=== PATIENT | female | born 1990 | race Hispanic/Latino ===

== ENCOUNTER 2023-02-22 01:31 | Emergency (ER) | payer BC, OTHER ==
[~2023-02-22] VITALS: Ht 172.7 cm; Wt 97.1 kg
[2023-02-22 02:19] LABS: BASOPHILS # (AUTO) 0.07 K/uL (0.00-0.20); BASOPHILS % (AUTO) 0.9 % (0.0-5.0); EOSINOPHILS % (AUTO) 6.4 % (0.0-8.0); HEMATOCRIT 37.6 % (36-48); IMMATURE GRANULOCYTE ABSOLUTE 0.03 K/uL (0-1); LYMPHOCYTES # (AUTO) 0.8 K/uL (1.0-4.8); LYMPHOCYTES % (AUTO) 9.8 % (21.0-51.0); MEAN CORPUSCULAR HEMOGLOBIN 26.1 pg (27.0-33.0); MEAN CORPUSCULAR HGB CONC 30.6 g/dL (32.0-36.0); MEAN CORPUSCULAR VOLUME 85.3 fL (79-99); MONOCYTES # (AUTO) 0.4 K/uL (0.1-1.0); MONOCYTES % (AUTO) 5.3 % (3.0-13.0); NEUTROPHILS # (AUTO) 6.1 K/uL (1.8-7.7); NEUTROPHILS % (AUTO) 77.2 % (40.0-77.0); PLATELET COUNT (AUTO) 331 K/uL (130-400); RED BLOOD CELL COUNT(AUTO) 4.41 MIL/uL (4.00-5.50); RED CELL DISTRIBUTION WIDTH 16.7 % (11.0-15.5); WHITE BLOOD COUNT (AUTO) 7.9 K/uL (4.8-10.8)
[2023-02-22 02:28] LABS: CARBON DIOXIDE 27 mmol/L (21-32); CHLORIDE 101 mmol/L (101-111); CREATININE 0.9 mg/dL (0.5-1.5); GLOMERULAR FILTR. RATE CALC 88 mL/min (>90); GLUCOSE,RANDOM 127 mg/dL (70-105); POTASSIUM 4.4 mmol/L (3.5-5.1); SODIUM SERUM 138 mmol/L (136-145); UREA NITROGEN, BLOOD 13 mg/dL (7-18)
[2023-02-22] MEDS ORDERED: 0.9%NACL 1000ML 1,000 ML IV SCH ×3 (02:30→03:00)
[2023-02-22 02:43] LABS: ALANINE AMINOTRANSFERASE 39 U/L (12-78); ALBUMIN 2.8 g/dL (3.5-5.0); ASPARTATE AMINOTRANSFERASE 47 U/L (10-37); BILIRUBIN,TOTAL 0.6 mg/dL (0.2-1.0); CREATINE KINASE, TOTAL 54 U/L (21-232); TOTAL PROTEIN, SERUM 7.9 g/dL (6.0-8.3)
[2023-02-22 03:05] LABS: WBC MORPHOLOGY CONSISTENT W/DIFF
[2023-02-22] MEDS ORDERED: IOHEXOL 350 MG/ML 100ML INFUS..BTL IV ONE (03:13)
[2023-02-22] MEDS ORDERED: IOHEXOL-350 50ML VIAL IV ONE (03:13)
[2023-02-22 04:43] LABS: APPEARANCE,URINE CLEAR (CLEAR); BILIRUBIN,URINE NEGATIVE (NEGATIVE); COLOR,URINE LIGHT-YELLOW (YELLOW); GLUCOSE, URINE (UA) NEGATIVE (NEGATIVE); KETONES,URINE NEGATIVE (NEGATIVE); LEUKOCYTE ESTERASE ,URINE 250 Leu/uL (NEGATIVE); NITRATE,URINE NEGATIVE (NEGATIVE); OCCULT BLOOD,URINE NEGATIVE (NEGATIVE); PROTEIN,URINE NEGATIVE (NEGATIVE); UROBILINOGEN,URINE 0.2 mg/dL (0.2-1.0)
[2023-02-22 04:44] LABS: ADD UA MICROSCOPIC YES
[2023-02-22 04:55] LABS: RBC,URINE 0-1 /HPF (0-1); SQUAMOUS EPITHELIAL CELL,UR RARE /HPF (0-2); WBC,URINE 26-50 /HPF (0-1)
[2023-02-22] MEDS ORDERED: CEFU500T67 PO (05:41)
[2023-02-22 05:54] VITALS: BP 105/63; PULSE 71; RESP 14; O2SAT 97
[2023-02-22] MEDS ORDERED: CEFTRIAXONE 1G VIAL IVPB ONE (06:00)
== END 2023-02-22 08:55 | disposition home or self-care (01) ==
LOC: EDH 01:31
DX: N39.0 Urinary tract infection, site not specified (principal); E86.0 Dehydration; R42 Dizziness and giddiness; Z98.890 Other specified postprocedural states; Z86.73 Personal history of transient ischemic attack (TIA), and cerebral infarction without residual deficits; Z88.2 Allergy status to sulfonamides
CPT/HCPCS: 99285; 70496; 96374; 96361; 71045; 82550; 84484; 80053; 83880; 84703; 85025; 87088; 81001; 36415; 70498; 74177; 93005; 70450; J0696; Q9967 ×2

== ENCOUNTER 2023-03-05 11:03 | Emergency (ER) | payer BC, OTHER ==
[~2023-03-05] VITALS: Ht 172.7 cm; Wt 105.2 kg
[~2023-03-05 11:03] MED LIST: CEFU500T67 PO
[2023-03-05 13:12] VITALS: BP 129/75; PULSE 94; RESP 17; O2SAT 97
== END 2023-03-05 13:39 | disposition left against medical advice (07) ==
LOC: EDH 11:03
DX: R42 Dizziness and giddiness (principal); R39.15 Urgency of urination; R11.0 Nausea; Z53.29 Procedure and treatment not carried out because of patient's decision for other reasons; Z98.890 Other specified postprocedural states; Z88.2 Allergy status to sulfonamides
CPT/HCPCS: 99281